=== PATIENT | male | born 1990 | race Caucasian/White ===

== ENCOUNTER 2017-03-02 14:18 | Emergency (ER) | payer MEDICAID, OTHER ==
[2017-03-02 14:25] VITALS: BP 130/80
[2017-03-02] MEDS ORDERED: OXYCODONE-ACETAMINOPHEN 5-325 MG TABLET PO ONE (15:04)
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
== END 2017-03-02 16:16 | disposition home or self-care (01) ==
LOC: ER 14:18
DX: S50.311A Abrasion of right elbow, initial encounter (principal); S80.211A Abrasion, right knee, initial encounter; R68.84 Jaw pain; M25.521 Pain in right elbow; M25.561 Pain in right knee; M79.641 Pain in right hand; V29.9XXA Motorcycle rider (driver) (passenger) injured in unspecified traffic accident, initial encounter; F17.210 Nicotine dependence, cigarettes, uncomplicated
CPT/HCPCS: 70486; 99284

== ENCOUNTER 2017-10-06 14:02 | Emergency (ER) | payer MEDICAID ==
[2017-10-06 14:27] VITALS: BP 134/79
[2017-10-06] MEDS ORDERED: LIDOCAINE 2% VISCOUS SOLN 20 ML UDCUP PO ONE (14:39)
--- NOTE | 2017-10-06 14:40 | ER Document Report ---
HPI - HPI Pain Level: 5 Notes: Patient is a 27-year-old male the history of chronic pain and on Suboxone who presents to the ED complaining of widespread dental pain 3-4 days. Patient states that he has poor dentition throughout. Patient has not been evaluated by dentist. Patient has not noticed any obvious abscess or discharge. He still eating and drinking without any difficulties. He has not had any recent illness. No other concerns or complaints. Patient does admit to smoking and is allergic to sulfa antibiotics. Denies any IV drug use. Denies any headache , fever, head injury, neck pain, URI, sore throat, hoarseness, drooling, chest pain, palpitations, syncope, cough, shortness of breath, wheeze, dyspnea, abdominal pain, nausea/vomiting/diarrhea, urinary retention, dysuria, hematuria , or rash. - ROS Systems Reviewed and Negative: Yes All other systems reviewed and negative Past Medical History - Social History Smoking Status: Current Every Day Smoker Family History: Reviewed & Not Pertinent Renal/ Medical History: Denies: Hx Peritoneal Dialysis - Immunizations Hx Diphtheria, Pertussis, Tetanus Vaccination: Yes Vertical Provider Document - CONSTITUTIONAL Agree With Documented VS: Yes Notes: PHYSICAL EXAMINATION: GENERAL: Well-appearing, well-nourished and in no acute distress. HEAD: Atraumatic, normocephalic. EYES: Pupils equal round and reactive to light, extraocular movements intact, sclera anicteric, conjunctiva are normal. ENT: EAC clear b/l. TM's intact b/l without erythema, fluid, or perforation. Nares patent and without discharge. oropharynx clear without exudates. No tonsilar hypertrophy or erythema. Moist mucous membranes. No sinus tenderness. Uvula midline. No palatine shift. No tongue protrusion. No respiratory compromise. Mouth: Poor dentition throughout the entire mouth. + severe decay and mild gingivitis. No obvious abscess or discharge noted. No facial swelling. + tenderness to lower teeth. NECK: Normal range of motion, supple without lymphadenopathy. No rigidity/ meningismus. LUNGS: Breath sounds clear to auscultation bilaterally and equal. No wheezes rales or rhonchi. HEART: Regular rate and rhythm without murmurs, rubs, gallops. NEUROLOGICAL: Cranial nerves grossly intact. Normal speech, normal gait. Normal sensory, motor exams PSYCH: Normal mood, normal affect. SKIN: Warm, Dry, normal turgor, no rashes or lesions noted. - INFECTION CONTROL TRAVEL OUTSIDE OF THE [place] IN LAST 30 DAYS: No - RESPIRATORY O2 Sat by Pulse Oximetry: 97 Course - Re-evaluation Re-evalutation: 10/06/17 14:47 Patient is an afebrile, well-hydrated, 27-year-old male who presents to the ED with dental pain, suspect nerve root etiology versus infection without abscess. Vitals are stable. PE is otherwise unremarkable. Low suspicion for any meningitis, sepsis, peritonsillar/pharyngeal abscess, respiratory compromise, Mikey's, temporal arteritis, or other emergent systemic condition at this time. Patient is aware this condition can change from initial presentation and he needs to monitor symptoms closely. I will send him home with a prescription for viscous lidocaine as well as penicillin. Conservative measures otherwise for symptoms. Call to schedule an appointment with a dentist for further evaluation and management. Recheck with your PCM this week as well. Return to the ED with any worsening/concerning symptoms otherwise as reviewed in discharge. Patient is in agreement. - Vital Signs Vital signs: Temp Pulse Resp BP Pulse Ox 98.1 F 73 14 134/79 H 97 10/06/17 14:26 10/06/17 14:26 10/06/17 14:26 10/06/17 14:26 10/06/17 14:26 Discharge - Discharge Clinical Impression: Toothache Condition: Stable Disposition: HOME, SELF-CARE Instructions: Dentist, Penicillin V K ([facility]), Toothache ([facility]) Additional Instructions: Yoder and floss twice daily Maintain fluid intake Take antibiotics as directed Mouthwash, salt water gargles, peroxide rinse as needed Tylenol/ibuprofen as needed Recheck with PCM this week Call today/tomorrow and schedule an appointment with your dentist for further evaluation Return to the ED with any worsening symptoms and/or development of fever, headache, facial swelling, swelling of lips/tongue/throat, trouble swallowing, drooling, hoarseness, neck pain/stiffness, chest pain, palpitations, syncope, shortness of breath, trouble breathing, abdominal pain, n/v/d, numbness/tingling , or other worsening symptoms that are concerning to you. Prescriptions: Penicillin V Potassium [Penicillin Vk 250 mg Tablet] 500 mg PO BID #40 tablet Forms: Elevated Blood Pressure Referrals: [facility] [Provider Group] - Follow up as needed
== END 2017-10-06 14:55 | disposition home or self-care (01) ==
LOC: ER 14:02
DX: K08.89 Other specified disorders of teeth and supporting structures (principal); G89.29 Other chronic pain; Z79.899 Other long term (current) drug therapy; F17.200 Nicotine dependence, unspecified, uncomplicated
CPT/HCPCS: 99282; J3490